=== PATIENT | female | born 1985 | race Caucasian/White ===

== ENCOUNTER → 2016-11-14 | Outpatient (CLI) | payer BC ==
--- NOTE | 2016-11-14 20:57 | US ---
EXAMINATION TYPE: US OB anatomy transabd DATE OF EXAM: 11/14/2016 COMPARISON: NONE HISTORY: Z36 Encounter for screening of mother TECHNIQUE: Transabdominal (TA) EXAM MEASUREMENTS: GESTATIONAL AGE / DATING Physician Established: (22 weeks/5 days) EDC: 03/15/2017 Dates by LMP: (22 weeks/5 days) EDC: 03/15/2017 Dates by First Scan: this is first scan Dates by Current Scan for: (21 weeks/6 days) EDC: 03/21/2017 SURVEY IUP: Single PLACENTA: Posterior PREVIA: No previa ALBARO: 14.7 cm Normal CERVICAL LENGTH (transabdominal: norm > 3.0cm): 3.2 cm BIOMETRY PRESENTATION: Vertex BPD: 5.0 cm 21 weeks / 1 days HC: 19.4 cm 21 weeks / 5 days AC: 16.3 cm 21 weeks / 3 days FL: 4.0 cm 23 weeks / 0 days ESTIMATED WEIGHT IN GRAMS: 467 grams ESTIMATED WEIGHT IN LBS/OZS: 1 lbs. 0 oz. WEIGHT PERCENTAGE BASED ON ESTABLISHED DATE: 14 % HC/AC: 1.2 Normal FL/AC: 25 just above the normal of 20-24 HEART RATE: 149 bpm RHYTHM: Normal ANATOMY SEEN (within normal limits): * Lateral Vent (< 1 cm) 0.6 cm * Cisterna Magna (< 1.1 cm) 0.5 cm * Nuchal Fold (< 0.6 cm) 0.4 cm * Cerebellum (varies with age) 2.4 cm Choroid Plexus (bilateral) Midline Falx Cavus Septi Pellucidi Four Chamber Heart Outflow tracts: LVOT/RVOT Stomach Situs Nose / Lips Diaphragm Kidneys (bilateral) Bladder Cord Insert Three Vessel Cord Longitudinal Spine Transverse Spine Arms (bilateral) Legs (bilateral) growth according to dates IMPRESSION: The ultrasound gestational age is 21 weeks and 6 days. The NICK is 03/15/2017. I see no complicating p rocess.
== END | disposition home or self-care (01) ==
LOC: RADUSWWP 15:39
PROVIDERS: ATTEND Obstetrics & Gynecology
DX: Z36 Encounter for antenatal screening of mother (principal); Z3A.21 21 weeks gestation of pregnancy
CPT/HCPCS: 76811

== ENCOUNTER → 2021-01-25 | Outpatient (CLI) | payer OTHER ==
--- NOTE | 2021-01-25 14:04 | XR ---
EXAMINATION TYPE: XR chest 2V DATE OF EXAM: 01/25/2021 COMPARISON: NONE HISTORY: J44.9,D64.9,E87.8,E11.65 TECHNIQUE: Frontal and lateral views of the chest are obtained. FINDINGS: There is no focal air space opacity, pleural effusion, or pneumothorax seen. The cardiac silhouette size is within normal limits. The osseous structures are intact, there is a spinal curva ture. IMPRESSION: No acute cardiopulmonary process.
[2021-01-25 14:21] LABS: Appearance,Urine Clear (Clear); Bilirubin,Urine Negative (Negative); Blood,Urine Trace (Negative); Color,Urine Light Yellow; Glucose,Urine (UA) Negative (Negative); Ketones,Urine Negative (Negative); Leukocyte Esterase,Urine Moderate (Negative); Mucus,Urine Rare /hpf; Nitrite,Urine Negative (Negative); Protein,Urine Negative (Negative); RBC,Urine 2 /hpf (0-5); Specific Gravity,Urine 1.008 (1.001-1.035); Squamous Epithelial Cell,Urine 1 /hpf (0-4); Urobilinogen,Urine <2.0 mg/dL (<2.0); WBC,Urine 1 /hpf (0-5)
[2021-01-25 18:59] LABS: Basophils # (A) 0.06 X 10*3/uL (0.00-0.10); Basophils % (A) 0.7 %; Eosinophils # (A) 0.12 X 10*3/uL (0.04-0.35); Eosinophils % (A) 1.5 %; HGB 15.7 g/dL (12.0-15.0); Lymphocytes # (A) 2.29 X 10*3/uL (0.90-5.00); Lymphocytes % (A) 28.1 %; MCH 29.5 pg (27.0-32.0); MCV 92.1 fL (80.0-97.0); Mean Platelet Volume 10.5 fL (9.5-12.2); Monocytes # (A) 0.35 X 10*3/uL (0.20-1.00); Monocytes % (A) 4.3 %; Platelet Count 347 X 10*3/uL (140-440); RBC 5.32 X 10*6/uL (4.10-5.20); RDW 13.4 % (11.5-14.5); WBC 8.15 X 10*3/uL (4.50-10.00)
[2021-01-25 20:23] LABS: Hemoglobin A1C 5.4 % (4.0-6.0)
[2021-01-25 21:07] LABS: Erythrocyte Sedimentation Rate 1 mm/Hr (0-20)
[2021-01-27 02:34] LABS: Hepatitis A Antibody IgM Nonreactive (Nonreactive); Hepatitis B Core IgM Nonreactive (Nonreactive); Hepatitis C IgG Antibody Nonreactive (Nonreactive)
[2021-01-27 21:14] LABS: LDL Cholesterol,Calculated 95.8 mg/dL (0.0-131.0); VLDL Calculation 25.2 mg/dL (5.00-40.00)
[2021-01-27 23:44] LABS: Albumin 4.4 g/dL (3.8-4.9); Albumin/Globulin Ratio 1.81 (1.60-3.17); Anion Gap 11.9 mmol/L (4.00-12.00); BUN/Creat Ratio 15.52 Ratio (12.00-20.00); C Reactive Protein 0.5 mg/dL (0.00-0.80); Calcium 9.4 mg/dL (8.7-10.3); Carbon Dioxide 21.7 mmol/L (21.6-31.8); Chol/HDL Ratio 3.2 Ratio; Globulin 2.4 g/dL (1.6-3.3); Magnesium 2.1 mg/dL (1.5-2.4); Non-African American GFR(CKD) 97.5 (60.0-200.0); Phosphorus 3.3 mg/dL (2.4-5.1); Potassium 5.1 mmol/L (3.5-5.5); T4, Free (Free Thyroxine) 1.17 ng/dL (0.800-1.800); Total Bilirubin 0.3 mg/dL (0.30-1.20); Total Protein 6.8 g/dL (6.2-8.2)
== END | disposition home or self-care (01) ==
LOC: LABWHC1 11:44
PROVIDERS: ATTEND Internal Medicine
DX: Z20.822 Contact with and (suspected) exposure to COVID-19 (principal); J44.9 Chronic obstructive pulmonary disease, unspecified; D63.1 Anemia in chronic kidney disease; E87.8 Other disorders of electrolyte and fluid balance, not elsewhere classified; N18.30 Chronic kidney disease, stage 3 unspecified; E78.5 Hyperlipidemia, unspecified; E11.65 Type 2 diabetes mellitus with hyperglycemia; N39.0 Urinary tract infection, site not specified
CPT/HCPCS: 36415; 71046; 80053; 80061; 80074; 81001; 82306; 82550; 83036; 83735; 84100; 84439; 84443; 85025; 85652; 86140; 87086; 87635